=== PATIENT | male | born 1970 | race Caucasian/White ===

== ENCOUNTER 2016-12-23 22:03 | Emergency (ER) | payer BC, OTHER ==
[2016-12-23] MEDS ORDERED: Diphtheria,Pertussis(Acell),Tetanus Vaccine 0.5 ML SDV ONE (22:41)
[2016-12-23] MEDS ORDERED: Lidocaine 1% 30 ML SDV ONE (22:41)
[2016-12-23] MEDS ORDERED: Diphtheria,Pertussis(Acell),Tetanus Vaccine 0.5 ML SDV IM ONE (22:45)
[2016-12-23] MEDS ORDERED: Lidocaine 1% 30 ML SDV INJECT ONE (23:00)
--- NOTE | 2016-12-23 23:25 | EDM.PDOC ---
ED HPI GENERAL MEDICAL PROBLEM - General Chief Complaint: Laceration Stated Complaint: LACERATION TO HAND Time Seen by Provider: 12/23/16 22:15 Source of Information: Reports: Patient History Limitations: Reports: No Limitations - History of Present Illness INITIAL COMMENTS - FREE TEXT/NARRATIVE: Patient presents the ED complaining of a laceration to the distal phalanx of the left index finger on the palmar side. Patient was cleaning dishes and actually cut himself with a knife. Bleeding controlled with direct pressure. Tetanus status not up-to-date. Minimal pain present. No bleeding with admission to the ED. Denies any numbness or tingling or inability to flex the distal pharynx. 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 Pain Score (Numeric/FACES): 2 - Related Data Allergies Allergy/AdvReac Type Severity Reaction Status Date / Time No Known Allergies Allergy Verified 12/23/16 22:51 Home Meds: Home Meds Lisinopril [Prinivil] 10 mg PO DAILY 12/23/16 [History] Omeprazole 20 mg PO DAILY 12/23/16 [History] Sertraline [Zoloft] 50 mg PO DAILY 12/23/16 [History] glipiZIDE [Glucotrol Xl] 5 mg PO BID 12/23/16 [History] Past Medical History - Past Health History Medical/Surgical History: Denies Medical/Surgical History Genitourinary History: Reports: Renal Calculus Psychiatric History: Reports: Depression Endocrine/Metabolic History: Reports: Diabetes, Type II - Past Surgical History Male Surgical History: Reports: Lithotripsy (ESWL) Social & Family History - Family History Family Medical History: Noncontributory - Tobacco Use Smoking Status *Q: Never Smoker Second Hand Smoke Exposure: No - Caffeine Use Caffeine Use: Reports: None - Alcohol Use Days Per Week of Alcohol Use: 0 - Recreational Drug Use Recreational Drug Use: No ED ROS GENERAL - Review of Systems Review Of Systems: ROS reveals no pertinent complaints other than HPI. ED EXAM, SKIN/RASH Exam: See Below Exam Limited By: No Limitations General Appearance: Alert, WD/WN, No Apparent Distress Ears: Hearing Grossly Normal Nose: Normal Inspection Throat/Mouth: Normal Voice, No Airway Compromise Neck: Normal Inspection, Supple Respiratory/Chest: No Respiratory Distress, No Accessory Muscle Use Cardiovascular: Normal Peripheral Pulses, Regular Rate, Rhythm Peripheral Pulses: 2+: Radial (L) Extremities: Other (1.2 cm deep laceration to the distal phalanx of the left index finger with minimal bleeding present. Minimal pain. He is able to flex DIP against resistance with no pain. No sensorimotor deficits.) Neurological: Alert, Oriented, CN II-XII Intact, Normal Cognition, No Motor/ Sensory Deficits Psychiatric: Normal Affect, Normal Mood Skin: Warm, Dry, Normal Color ED SKIN PROCEDURES - Laceration/Wound Repair Left Finger Lac/Wound length In cm: 1.2 Appearance: Subcutaneous Distal NVT: Neuro & Vascular Intact, No Tendon Injury Anesthetic Type: Local Local Anesthesia - Lidocaine (Xylocaine): 1% Plain Local Anesthetic Volume: 4cc Skin Prep: Chlorhexidine (Hibiciens), Saline, Sterile Drape Exploration/Debridement/Repair: Wound Explored, In a Bloodless Field, Explored to Base, No Foreign Material Found Closed with: Sutures Suture Size: 4-0 # of Sutures: 3 Suture Type: Prolene, Interrupted, Simple Drain Placement: No Sterile Dressing Applied: Nurse Tetanus Status Addressed: Yes Complications: No Course - Vital Signs Last Recorded V/S: Last Vital Signs Temp 98.4 F 12/23/16 22:03 Pulse 100 12/23/16 22:03 Resp 18 12/23/16 22:03 BP 137/92 H 12/23/16 22:03 Pulse Ox 100 12/23/16 22:03 - Orders/Labs/Meds Orders: Active Orders 24 hr Category Date Time Status Vaccines to be Administered [RC] PER UNIT ROUTINE Care 12/23/16 23:01 Active Meds: Medications Discontinued Medications Generic Name Dose Route Start Last Admin Trade Name Joyce PRN Reason Stop Dose Admin Diphtheria/Tetanus/Acell Pertussis 0.5 ml 12/23/16 22:45 12/23/16 23:27 Adacel IM 12/23/16 22:46 0.5 ml .ONCE ONE Administration Lidocaine HCl 30 ml 12/23/16 23:00 12/23/16 23:30 Xylocaine-Mpf 1% INJECT 12/23/16 23:01 30 ml ONETIME ONE Administration - Re-Assessments/Exams Free Text/Narrative Re-Assessment/Exam: Ordered lidocaine 1% and Adacel. Laceration closed with no complications. He will be discharged home with instructions as documented. Departure - Departure Time of Disposition: 23:21 Disposition: Home, Self-Care 01 Condition: Good Clinical Impression: Laceration Laceration of finger of left hand Qualifiers: Encounter type: initial encounter Finger: index finger Damage to nail status: without damage Foreign body presence: without foreign body Qualified Code(s): S61.211A - Laceration without foreign body of left index finger without damage to nail, initial encounter - Discharge Information Instructions: Laceration Care, Adult, [id number], Stitches, Gerber, or Adhesive Wound Closure, [id number] Referrals: Pauly Elkins DO [Primary Care Provider] - Forms: ED Department Discharge - My Orders Last 24 Hours: My Active Orders 12/23/16 23:01 Vaccines to be Administered [RC] PER UNIT ROUTINE - Assessment/Plan Last 24 Hours: My Active Orders 12/23/16 23:01 Vaccines to be Administered [RC] PER UNIT ROUTINE
== END 2016-12-23 23:25 | disposition home or self-care (01) ==
LOC: JD.ED 22:03
DX: S61.211A Laceration without foreign body of left index finger without damage to nail, initial encounter (principal); X78.1XXA Intentional self-harm by knife, initial encounter
CPT/HCPCS: 12001; 90471; 90715; 99283; 99283-25